=== PATIENT | female | born 1970 | race African-American/Black ===

== ENCOUNTER 2022-08-20 15:13 | Observation (INO) ==
[2022-08-20 15:38] LABS: Basophils # 0.1 10*3/uL (0.0-0.2); Basophils % 1.7 % (0.0-0.8); Eosinophils # 0.2 10*3/uL (0.0-0.87); Eosinophils % 2.7 % (0.00-10.9); Hematocrit 37.1 VOL% (35.7-47.0); Immature Granulocytes % 0.8 %; Immature Granulocytes Absolute 0.05 #; Lymphocytes # 1.3 10*3/uL (1.4-4.0); Lymphocytes % 19.5 % (21.3-54.2); Mean Corpuscular HGB Conc 32.3 GM/DL (32-36); Mean Corpuscular Volume 94.6 FL (87-102); Mean Platelet Volume 9.3 FL (9.6-12.0); Monocytes # 0.5 10*3/uL (0.11-0.8); Monocytes % 7.4 % (1.7-12.7); Neutrophils % 67.9 % (38.7-73.9); Platelet Count 374 T/CUMM (130-400); Red Blood Count 3.92 MC/CUMM (3.8-5.5); Red Cell Distribution Width 15.3 % (9.3-17.3); White Blood Count 6.7 T/CUMM (4-12)
[2022-08-20 15:56] LABS: Albumin 4.1 G/DL (3.4-5.0); Bilirubin,Total 0.6 MG/DL (0.20-1.00); Calcium 9.7 MG/DL (8.5-10.1); Osmolality,Calculated 271.7 MOS/KG (273-304); Potassium 3.8 MMOL/L (3.5-5.1); Total Protein 8.4 G/DL (6.4-8.2)
[2022-08-20 16:01] LABS: INR 1.1; PT Patient Result 11.7 SECS (10.1-12.1); Partial Thromboplastin Time 31.9 SECS (23.7-32.9)
[2022-08-20 17:35] LABS: Bilirubin,Urine Negative (Negative); Blood, Urine Negative (Negative); Glucose,Urine (UA) Negative (Negative); Ketones,Urine Negative (Negative); Nitrite,Urine Negative (Negative); Protein,Urine Negative (Negative); Urine Appearance Slightly Cloudy (Clear); Urine Color Yellow (Yellow); Urine Urobilinogen 0.2 eU/dL (<2.0); Urine pH 5.5 (4.5-8.0)
[2022-08-20 17:40] LABS: Bacteria,Urine Few /HPF (Few); Hyaline Casts,Urine 1 /LPF (0-3); Mucus,Urine Occasional /LPF (Occasional); RBC,Urine 2 /HPF (0-4); Squamous Epithelial Cell,Urine Occasional /HPF (0-10)
[2022-08-20] MEDS ORDERED: SODIUM CHLORIDE 0.9% 1,000 ML IV STA (19:13)
[2022-08-20] MEDS ORDERED: ACETAMINOPHEN 325 MG TABLET PO PRN (19:56)
[2022-08-20] MEDS ORDERED: ONDANSETRON 4 MG/2 ML VIAL IV PRN (19:56)
[2022-08-20] MEDS ORDERED: SIMETHICONE CHEW 125 MG TABLET PO PRN (19:56)
[2022-08-20] MEDS ORDERED: LACTULOSE 20 GM/30 ML UDCUP PO PRN (19:56)
[2022-08-20] MEDS ORDERED: hydrALAZINE 20 MG/1 ML VIAL IV PRN (19:56)
[2022-08-20] MEDS: SODIUM CHLORIDE 0.45% 1,000 ML IV SCH (23:24)
[2022-08-20] MEDS: ENOXAPARIN 40 MG/0.4 ML SYRINGE SUBCUT SCH (23:25)
[2022-08-20] MEDS: DOCUSATE SODIUM 100 MG CAPSULE PO SCH (23:25)
[2022-08-20] MEDS: ROSUVASTATIN 20 MG TABLET PO SCH (23:25)
[2022-08-21 05:15] LABS: Basophils # 0.1 10*3/uL (0.0-0.2); Basophils % 1.3 % (0.0-0.8); Eosinophils # 0.2 10*3/uL (0.0-0.87); Eosinophils % 3.1 % (0.00-10.9); Hematocrit 34.4 VOL% (35.7-47.0); Hemoglobin 10.8 GM/DL (12.0-16.0); Immature Granulocytes % 0.5 %; Immature Granulocytes Absolute 0.03 #; Lymphocytes # 1.5 10*3/uL (1.4-4.0); Lymphocytes % 25.3 % (21.3-54.2); Mean Corpuscular HGB Conc 31.4 GM/DL (32-36); Mean Corpuscular Volume 94.5 FL (87-102); Mean Platelet Volume 9.5 FL (9.6-12.0); Monocytes # 0.5 10*3/uL (0.11-0.8); Monocytes % 8.9 % (1.7-12.7); Neutrophils % 60.9 % (38.7-73.9); Platelet Count 302 T/CUMM (130-400); Red Blood Count 3.64 MC/CUMM (3.8-5.5); Red Cell Distribution Width 15.3 % (9.3-17.3)
[2022-08-21 05:50] LABS: Albumin 3.2 G/DL (3.4-5.0); Bilirubin,Total 0.6 MG/DL (0.20-1.00); Calcium 8.6 MG/DL (8.5-10.1); Osmolality,Calculated 276.3 MOS/KG (273-304); Potassium 3.8 MMOL/L (3.5-5.1); Risk Ratio 1.91; Thyroid Stimulating Hormone 2.21 uIU/ml (0.358-3.74); Total Protein 7.1 G/DL (6.4-8.2)
[2022-08-21] MEDS: LEVOTHYROXINE 88 MCG TABLET PO SCH (06:20)
[2022-08-21 07:38] LABS: Barbiturates Screen,Urine Negative (Negative); Benzodiazepines Screen,Urine Negative (Negative); Cannabinoid Screen,Urine Negative (Negative); Opiate Screen,Urine Positive (Negative); Phencyclidine Screen,Urine Negative (Negative)
[2022-08-21] MEDS: DOCUSATE SODIUM 100 MG CAPSULE PO SCH ×2 (08:03→20:33)
[2022-08-21] MEDS: PANTOPRAZOLE 40 MG TABLET PO SCH (08:03)
[2022-08-21] MEDS: CLOPIDOGREL 75 MG TABLET PO SCH (08:04)
[2022-08-21] MEDS: amLODIPine 5 MG TABLET PO SCH (08:04)
[2022-08-21] MEDS: SODIUM CHLORIDE 0.45% 1,000 ML IV SCH ×4 (08:16→20:31)
[2022-08-21] MEDS: POLYETHYLENE GLYCOL POWDER 17 GM PACK PO SCH ×2 (11:52→20:33)
[2022-08-21] MEDS ORDERED: BISACODYL 5 MG TABLET PO ONE (15:49)
[2022-08-21] MEDS ORDERED: LUBIPROSTONE 24 MCG CAPSULE PO ONE (18:47)
[2022-08-21] MEDS: busPIRone 5 MG TABLET PO SCH (20:32)
[2022-08-21] MEDS: ROSUVASTATIN 20 MG TABLET PO SCH (20:32)
[2022-08-21] MEDS: ENOXAPARIN 40 MG/0.4 ML SYRINGE SUBCUT SCH (20:43)
[2022-08-22] MEDS: SODIUM CHLORIDE 0.45% 1,000 ML IV SCH ×3 (03:59→15:55)
[2022-08-22 04:01] VITALS: BP 128/87
[2022-08-22] MEDS: LEVOTHYROXINE 88 MCG TABLET PO SCH (05:15)
[2022-08-22 06:06] LABS: Basophils # 0.1 10*3/uL (0.0-0.2); Basophils % 1.6 % (0.0-0.8); Eosinophils # 0.3 10*3/uL (0.0-0.87); Eosinophils % 4.3 % (0.00-10.9); Hematocrit 32.6 VOL% (35.7-47.0); Hemoglobin 10.6 GM/DL (12.0-16.0); Immature Granulocytes % 0.7 %; Immature Granulocytes Absolute 0.04 #; Lymphocytes # 1.5 10*3/uL (1.4-4.0); Lymphocytes % 25.1 % (21.3-54.2); Mean Corpuscular HGB Conc 32.5 GM/DL (32-36); Mean Corpuscular Volume 93.9 FL (87-102); Monocytes # 0.5 10*3/uL (0.11-0.8); Monocytes % 8.8 % (1.7-12.7); Neutrophils % 59.5 % (38.7-73.9); Platelet Count 305 T/CUMM (130-400); Red Blood Count 3.47 MC/CUMM (3.8-5.5); Red Cell Distribution Width 15.3 % (9.3-17.3); White Blood Count 5.8 T/CUMM (4-12)
[2022-08-22 06:21] LABS: Calcium 8.8 MG/DL (8.5-10.1); Osmolality,Calculated 274.4 MOS/KG (273-304); Potassium 3.8 MMOL/L (3.5-5.1)
[2022-08-22] MEDS ORDERED: LINACLOTIDE 145 MCG CAPSULE PO SCH (07:30)
[2022-08-22] MEDS: busPIRone 5 MG TABLET PO SCH (08:51)
[2022-08-22] MEDS: PANTOPRAZOLE 40 MG TABLET PO SCH (08:53)
[2022-08-22] MEDS: amLODIPine 5 MG TABLET PO SCH (08:53)
[2022-08-22] MEDS: CLOPIDOGREL 75 MG TABLET PO SCH (08:53)
[2022-08-22] MEDS: DOCUSATE SODIUM 100 MG CAPSULE PO SCH (08:53)
[2022-08-22] MEDS ORDERED: LUBIPROSTONE 24 MCG CAPSULE PO SCH (09:00)
[2022-08-22] MEDS: POLYETHYLENE GLYCOL POWDER 17 GM PACK PO SCH (09:05)
[2022-08-22] MEDS ORDERED: predniSONE 20 MG TABLET PO SCH (13:00)
== END 2022-08-22 14:50 | disposition home or self-care (01) ==
LOC: N.ED 15:13 → N.EDINP 15:13 → SUATTDRO 19:56 → N.TELES 22:30
PROVIDERS: ADMIT Internal Medicine; ATTEND Hospitalist